=== PATIENT | male | born 1970 | race Caucasian/White ===

== ENCOUNTER → 2016-05-20 | Outpatient (CLI) | payer OTHER | LOC: BMCIMAGING 13:05 | PROVIDERS: ATTEND Internal Medicine | DX: J45.909 Unspecified asthma, uncomplicated (principal); R05 Cough; R06.00 Dyspnea, unspecified ==

== ENCOUNTER → 2018-05-03 | Outpatient (CLI) | payer OTHER | LOC: BMCIMAGING 09:01 | PROVIDERS: ATTEND Podiatrist Foot & Ankle Surgery | DX: M79.672 Pain in left foot (principal) ==